=== PATIENT | female | born 1990 | race Caucasian/White ===

== ENCOUNTER 2017-01-30 01:20 | Emergency (ER) | payer MEDICAID ==
[~2017-01-30] VITALS: Ht 152.4 cm; Wt 48.3 kg
[2017-01-30 01:29] VITALS: BP 127/82
--- NOTE | 2017-01-30 01:34 | NUR ---
Patient ambulated to bed 03.
--- NOTE | 2017-01-30 01:35 | NUR ---
PATIENT PRESENTS TO ED WITH C/O PAIN ON LEFT SHOULDER FROM BUG BITE . PT DENIES N/V/D; SKIN IS PINK/WARM/DRY; AAOX4 WITH EVEN AND STEADY GAIT; LUNGS CLEAR BL; HR EVEN AND REGULAR; PT DENIES ANY FEVER, CP, SOB, OR COUGH AT THIS TIME; VSS; PATIENT POSITIONED FOR COMFORT; HOB ELEVATED; BEDRAILS UP X2; BED DOWN. ER MD MADE AWARE OF PT STATUS.
--- NOTE | 2017-01-30 01:48 | NUR ---
Patient being evaluated by physician at bedside.
[2017-01-30] MEDS ORDERED: LIDOCAINE 1% 500 MG/50 ML VIAL INJ ONE (01:55)
[2017-01-30 02:39] VITALS: BP 120/84
--- NOTE | 2017-01-30 02:41 | NUR ---
Patient discharged with v/s stable. Written and verbal after care instructions given and explained. Patient alert, oriented and verbalized understanding of instructions. Ambulatory with steady gait. All questions addressed prior to discharge. ID band removed. Patient advised to follow up with PMD. Rx of ULTRAM 50MG, MOTRIN 800MG, CLEOCIN 300MG given. Patient educated on indication of medication including possible reaction and side effects. Opportunity to ask questions provided and answered.
== END 2017-01-30 02:41 | disposition home or self-care (01) ==
LOC: MED 01:20
DX: L02.414 Cutaneous abscess of left upper limb (principal); F17.210 Nicotine dependence, cigarettes, uncomplicated
CPT/HCPCS: 10060; 90471; 90715; 99283; J2001

== ENCOUNTER 2017-02-01 13:36 | Emergency (ER) | payer MEDICAID ==
[~2017-02-01] VITALS: Ht 152.4 cm; Wt 48.1 kg
[2017-02-01 14:28] VITALS: BP 112/68
[2017-02-01] MEDS ORDERED: BACITRACIN OINT 500 UNITS/GM PKT TP ONE ×2 (14:50→14:56)
[2017-02-01 15:04] VITALS: BP 118/72
== END 2017-02-01 15:04 | disposition home or self-care (01) ==
LOC: MED 13:36
DX: Z48.01 Encounter for change or removal of surgical wound dressing (principal)
CPT/HCPCS: 99283